=== PATIENT | male | born 1960 | race Hispanic/Latino ===

== ENCOUNTER 2020-06-14 10:59 | Inpatient (IN) | payer OTHER ==
[~2020-06-14] VITALS: Ht 170.2 cm; Wt 56.7 kg
[2020-06-14] MEDS ORDERED: ONDANSETRON HCL INJ 2MG/ML 2ML 2 MG/ML VIAL IV STA (11:06)
[2020-06-14] MEDS ORDERED: MORPHINE SULFATE INJ 4 MG/ML INJ 1ML IV STA (11:06)
[2020-06-14] MEDS ORDERED: SODIUM CHLORIDE 0.9% 1000ML 1,000 ML IV STA (11:06)
[2020-06-14] MEDS ORDERED: PANTOPRAZOLE 40 MG 10ML VIAL IV STA (11:06)
[2020-06-14 11:39] LABS: BASOPHILS % 0.3 % (0.0-1.0); EOSINOPHILS # (AUTO) 0.2 (0.0-0.4); EOSINOPHILS % 2.4 % (0.0-6.0); HEMATOCRIT 36.4 % (38.2-49.6); HEMOGLOBIN 12.4 g/dL (14.0-18.0); LYMPHOCYTES # (AUTO) 2.1 (1.0-3.2); MEAN CORPUSCULAR HEMOGLOBIN 32.5 pg (28-32); MEAN CORPUSCULAR HGB CONC 34.1 g/dL (31-35); MEAN CORPUSCULAR VOLUME 95.5 fL (81-99); MONOCYTES # (AUTO) 0.6 (0.2-0.8); MONOCYTES % 8.9 % (4.4-11.3); NEUTROPHILS # (AUTO) 3.7 (2.1-6.9); NEUTROPHILS % 55.9 % (38.7-80.0); PLATELET COUNT 256 x10e3/uL (140-360); RED BLOOD COUNT 3.81 x10e6/uL (4.3-5.7); RED CELL DISTRIBUTION WIDTH 13.5 % (11.7-14.4)
[2020-06-14 11:51] LABS: INR 0.97; PROTHROMBIN TIME 13.4 seconds (11.9-14.5)
[2020-06-14 11:52] LABS: PARTIAL THROMBOPLASTIN TIME 28.1 seconds (23.8-35.5)
[2020-06-14 12:01] LABS: ALANINE AMINOTRANSFERASE 102 IU/L (0-55); ALBUMIN 3.5 g/dL (3.5-5.0); ALBUMIN/GLOBULIN RATIO 1.1 (0.8-2.0); ALKALINE PHOSPHATASE 31 IU/L (40-150); AMYLASE 95 U/L (25-125); ANION GAP 11.8 mmol/L (8-16); BLOOD UREA NITROGEN 12 mg/dL (7-26); BUN/CREATININE RATIO 17 (6-25); CALCIUM 8.8 mg/dL (8.4-10.2); CARBON DIOXIDE 29 mmol/L (22-29); CHLORIDE 101 mmol/L (98-107); CREATINE KINASE 65 IU/L (30-200); CREATININE, SERUM 0.72 mg/dL (0.72-1.25); EST GLOMERULAR FILTRATION RATE > 60 ML/MIN (60-); GLUCOSE 128 mg/dL (74-118); LIPASE 73 U/L (8-78); MAGNESIUM 2.1 MG/DL (1.3-2.1); POTASSIUM 3.8 mmol/L (3.5-5.1); SODIUM 138 mmol/L (136-145)
--- NOTE | 2020-06-14 12:03 | Diagnostic Imaging Report ---
TECHNIQUE: Frontal view of the chest. INDICATION: ^ABD PAIN, N/V ^20200614 ^1141 COMPARISON: None DISCUSSION: Limited evaluation due to portable technique. Lines and hardware: None Heart and mediastinum: Within normal limits. Lungs and pleura: No focal airspace consolidation. No pleural effusion. No pneumothorax. Soft tissues and bones: No acute abnormality. IMPRESSION: Negative for acute intrathoracic process. Signed by: Jayson Hernandez MD on 06/14/2020 12:00 PM
--- OUTSIDE RECORDS SUMMARY | 2020-06-14 12:18 | XMS REPORT | Continuity of Care Document ---
Author Author [facility] t Organization [facility] Address [address] [place] [address] Phone Unavailable Care Team Providers Care Tourist Information Officer Name Role Phone Danyell SANTOS Attphys Unavailable [facility] Attphys Problems This patient has no known problems. Allergies, Adverse Reactions, Alerts This patient has no known allergies or adverse reactions. Medications This patient has no known medications. Procedures This patient has no known procedures. Encounters Start Date/Time End Date/Time Encounter Type Admission Type Attendi [facility] Care Department Encounter ID Source 2020-06-02 13:01:00 2020-06-02 15:59:00 Emergency [facility] ([facility]) [id number] Results Test Description Test Time Test Comments Results Result Comments Source CHEST SINGLE (PORTABLE) 2020-06-14 11:59:00 [facility] [address] [place] [address] Patient Name: GHULAM CISNEROS MR #: [id number] : 1960 Age/Sex: 59/M Req #: [id number] Adm Physician: Ordered by: ANN-MARIE SANTOS MD Report #: [id number] Location: ER Room/Bed: Procedure: [id number] DX/CHEST SINGLE (PORTABLE) Exam Date: 06/14/20 Exam Time: 1141 REPORT STATUS: Signed TECHNIQUE: Frontal view of the chest. INDICATION: ABD PAIN, N/V 20200614 114 COMPARISON: None DISCUSSION: Limited evaluation due to portable technique. Lines and hardware: None Heart and mediastinum: Within normal limits. Lungs and pleura: No focal airspace consolidation. No pleural effusion. No pneumothorax. Soft tissues and bones: No acute abnormality. IMPRESSION: Negative for acute intrathoracic process. Signed by: Emy Hernandez MD on 06/14/2020 12:00 PM Dictated By: EMY HERNANDEZ MD 1200 Transcribed By: NATY on 06/14/20 1200 COPY TO: ANN-MARIE SANTOS MD
--- OUTSIDE RECORDS SUMMARY | 2020-06-14 12:47 | XMS REPORT | Continuity of Care Document ---
Author Author [facility] t Organization [facility] Address [address] [place] [address] Phone Unavailable Care Team Providers Care Cloud Automation Tester Name Role Phone Danyell SANTOS Attphys Unavailable [facility] Attphys Problems This patient has no known problems. Allergies, Adverse Reactions, Alerts This patient has no known allergies or adverse reactions. Medications This patient has no known medications. Procedures This patient has no known procedures. Encounters Start Date/Time End Date/Time Encounter Type Admission Type Attendi [facility] Care Department Encounter ID Source 2020-06-02 13:01:00 2020-06-02 15:59:00 Emergency [facility] ([facility]) [id number] Results Test Description Test Time Test Comments Results Result Comments Source CHEST SINGLE (PORTABLE) 2020-06-14 11:59:00 [facility] [address] [place] [address] Patient Name: GHULAM CISNEROS MR #: [id number] : 1960 Age/Sex: 59/M Req #: [id number] Adm Physician: Ordered by: ANN-MARIE SANTOS MD Report #: [id number] Location: ER Room/Bed: Procedure: [id number] DX/CHEST SINGLE (PORTABLE) Exam Date: 06/14/20 Exam [...]
[2020-06-14] MEDS ORDERED: SODIUM CHLORIDE 0.9% 50ML 50 ML ONE (12:49)
[2020-06-14] MEDS ORDERED: IOPAMIDOL 370 MG/ML 200 ML INFUS..BTL INJ ONE (12:49)
[2020-06-14] MEDS ORDERED: DIATRIZOATE MEGL/DIATRIZOA SOD 30 ML BTL PO ONE (12:52)
--- NOTE | 2020-06-14 13:31 | Emergency Department Note ---
History of Present Illnes History of Present Illness Chief Complaint: Abdominal Complaints History of Present Illness This is a 59 year old male Patient in from home with complaints of abdominal pain and nausea/vomiting that has gotten progressively worse since December of this year. Patient has a history of hiatal hernia and gallstones. He has been followed by Dr. Gary Hagrrove and was sent to the ER for evaluation. Patient is alert and oriented x 4 with stable vital signs. Historian: Patient Arrival Mode: Car Certified Medical Dosimetrist Required: No Onset (how long ago): month(s) (6) Location: UPPER ABD Quality: PAIN Radiation: Reports non-radiation Severity: moderate, severe Onset quality: gradual Timing of current episode: intermittent Progression: waxing and waning Chronicity: chronic Context: Denies recent illness Relieving factors: none Exacerbating factors: none Associated symptoms: Reports denies other symptoms Past Medical/Family History Physician Review I have reviewed the patient's past medical and family history. Any updates have been documented here. Past Medical History Recent Fever: No Clinical Suspicion of Infectio: No New/Unexplained Change in Ment: No Past Medical History: Diabetes Other Medical History: neuropathy Past Surgical History: None Social History Smoking Cessation: Former smoker Counseling Performed: Yes Alcohol Use: Occasional Any Illegal Drug Use: No TB Exposure/Symptoms: No Physically hurt or threatened: No Family History Family history of heart diseas: No Other Any Pre-Existing Lines (PICC,: No Review of Systems Review of Systems Gastrointestinal: Reports as per HPI, Reports abdominal pain, Reports diarrhea (OCCASIONALLY), Reports nausea, Reports vomiting (FREQUENT) Physical Exam Related Data Allergies: Coded Allergies: No Known Allergies (Unverified , 03/30/11) Triage Vital Signs Vital Signs Date Time Temp Pulse Resp B/P (MAP) Pulse Ox O2 Delivery O2 Flow Rate FiO2 06/14/20 11:08 98.2 63 16 111/64 100 Room Air Vital signs reviewed: Yes Physical Exam CONSTITUTIONAL Constitutional: Present well-developed, Present well-nourished HENT HENT: Present normocephalic, Present atraumatic, Present oropharynx clear/moist, Present nose normal HENT L/R: Present left ext ear normal, Present right ext ear normal EYES Eyes: Reports PERRL, Reports conjunctivae normal NECK Neck: Present ROM normal PULMONARY Pulmonary: Present effort normal, Present breath sounds normal CARDIOVASCULAR Cardiovascular: Present regular rhythm, Present heart sounds normal, Present capillary refill normal, Present normal rate GASTROINTESTINAL Abdominal: Present soft, Present bowel sounds normal, Present tender (MOD TTP OBI/RUQ, NEG MEDELLIN'S); Absent guarding, Absent rebound GENITOURINARY Genitourinary: Present exam deferred SKIN Skin: Present warm, Present dry MUSCULOSKELETAL Musculoskeletal: Present ROM normal NEUROLOGICAL Neurological: Present alert, Present oriented x 3, Present no gross motor or sensory deficits PSYCHOLOGICAL Psychological: Present mood/affect normal, Present judgement normal Results Laboratory Result Diagram: 06/14/20 1118 06/14/20 1118 Laboratory Laboratory Tests Test 06/14/20 11:18 White Blood Count 6.60 x10e3/uL (4.8-10.8) Red Blood Count 3.81 x10e6/uL (4.3-5.7) Hemoglobin 12.4 g/dL (14.0-18.0) Hematocrit 36.4 % (38.2-49.6) Mean Corpuscular Volume 95.5 fL (81-99) Mean Corpuscular Hemoglobin 32.5 pg (28-32) Mean Corpuscular Hemoglobin Concent 34.1 g/dL (31-35) Red Cell Distribution Width 13.5 % (11.7-14.4) Platelet Count 256 x10e3/uL (140-360) Neutrophils (%) (Auto) 55.9 % (38.7-80.0) Lymphocytes (%) (Auto) 32.0 % (18.0-39.1) Monocytes (%) (Auto) 8.9 % (4.4-11.3) Eosinophils (%) (Auto) 2.4 % (0.0-6.0) Basophils (%) (Auto) 0.3 % (0.0-1.0) Neutrophils # (Auto) 3.7 (2.1-6.9) Lymphocytes # (Auto) 2.1 (1.0-3.2) Monocytes # (Auto) 0.6 (0.2-0.8) Eosinophils # (Auto) 0.2 (0.0-0.4) Basophils # (Auto) 0.0 (0.0-0.1) Absolute Immature Granulocyte (auto 0.03 x10e3/uL (0-0.1) Prothrombin Time 13.4 seconds (11.9-14.5) Prothromb Time International Ratio 0.97 Activated Partial Thromboplast Time 28.1 seconds (23.8-35.5) Sodium Level 138 mmol/L (136-145) Potassium Level 3.8 mmol/L (3.5-5.1) Chloride Level 101 mmol/L (98-107) Carbon Dioxide Level 29 mmol/L (22-29) Anion Gap 11.8 mmol/L (8-16) Blood Urea Nitrogen 12 mg/dL (7-26) Creatinine 0.72 mg/dL (0.72-1.25) Estimat Glomerular Filtration Rate > 60 ML/MIN (60-) BUN/Creatinine Ratio 17 (6-25) Glucose Level 128 mg/dL (74-118) Calcium Level 8.8 mg/dL (8.4-10.2) Magnesium Level 2.1 MG/DL (1.3-2.1) Total Bilirubin 0.2 mg/dL (0.2-1.2) Aspartate Amino Transf (AST/SGOT) 46 IU/L (5-34) Alanine Aminotransferase (ALT/SGPT) 102 IU/L (0-55) Alkaline Phosphatase 31 IU/L (40-150) Creatine Kinase 65 IU/L (30-200) Creatine Kinase MB 1.00 ng/mL (0-5.0) Troponin I < 0.001 ng/mL (0-0.300) B-Type Natriuretic Peptide 30.3 pg/mL (0-100) Total Protein 6.6 g/dL (6.5-8.1) Albumin 3.5 g/dL (3.5-5.0) Globulin 3.1 g/dL (2.3-3.5) Albumin/Globulin Ratio 1.1 (0.8-2.0) Amylase Level 95 U/L (25-125) Lipase 73 U/L (8-78) Lab results reviewed: Yes Procedures 12 Lead ECG Interpretation ECG Interpretation : ECG: ECG 1 Certified Medical Dosimetrist: Interpreted by ED physician Date: Jun 14, 2020 Time: 13:15 Rhythm: sinus bradycardia Rate: bradycardia BPM: 59 QRS axis: right ST segments normal: Yes T waves normal: Yes Clinical Impression: non-specific ECG Assessment & Plan Medical Decision Making MDM ABD PAIN, N/V - CBC, CHEM, KINSEY/LIPASE, UA, CT ABD/PELVIS - SENT FOR ADMISSION, R /O SBO, HIATAL HERNIA, PANCREATITIS, CHOLECYSTITIS Reassessment Reassessment ADMIT TO DR ENGLISH PCP, CONSULT TO Dank ROSA (I SPOKE WITH HIM) Assessment & Plan Final Impression: (1) Abdominal pain (2) Vomiting (3) Dehydration Depart Disposition: ADMITTED Last Vital Signs Date Time Temp Pulse Resp B/P (MAP) Pulse Ox O2 Delivery O2 Flow Rate FiO2 06/14/20 12:57 56 18 99 06/14/20 11:08 98.2 111/64 Room Air Medications in the ED Pantoprazole Sodium 40 mg ONCE STAT IV ; Start 06/14/20 at 11:06; Stop 06/14/20 at 11:21; Status DC Morphine Sulfate 4 mg ONCE STAT IV ; Start 06/14/20 at 11:06; Stop 06/14/20 at 11:20; Status DC Ondansetron HCl 4 mg ONCE STAT IV ; Start 06/14/20 at 11:06; Stop 06/14/20 at 11:21; Status DC Sodium Chloride 1,000 ml @ 0 mls/hr Q0M STAT IV ; Start 06/14/20 at 11:06; Stop 06/14/20 at 11:08; Status DC Sodium Chloride 1,000 ml @ 125 mls/hr Q8H IV ; Start 06/14/20 at 12:00; Stop 07/14/20 at 11:59 Morphine Sulfate 4 mg Q4H PRN IV SEVERE PAIN (7-10); Start 06/14/20 at 12:00; Stop 06/21/20 at 11:59 Ondansetron HCl 4 mg Q4H PRN IV NAUSEA; Start 06/14/20 at 12:00; Stop 07/14/20 at 11:59 ANN-MARIE SANTOS MD Jun 14, 2020 13:31
--- NOTE | 2020-06-14 13:51 | Diagnostic Imaging Report ---
CT of the abdomen and pelvis with contrast TECHNIQUE: CT of the abdomen and pelvis WITH intravenous contrast and WITHOUT oral contrast. Dose modulation, iterative reconstruction, and/or weight-based adjustment of the mA/kV was utilized to reduce the radiation dose to as low as reasonably achievable. IV CONTRAST: 100 mL of Isovue 370 ORAL CONTRAST: Water RADIATION DOSE: Total DLP: 516 mGy*cm COMPLICATIONS: None INDICATION: ^ABD PAIN, N/V ^[id number] ^1250. COMPARISON: None. FINDINGS: LOWER THORAX: Unremarkable. HEPATOBILIARY: No focal hepatic lesions. Multiple large calcified gallstones are identified. No wall thickening or surrounding inflammatory changes noted. No biliary ductal dilatation. SPLEEN: No splenomegaly. PANCREAS: No focal masses or ductal dilatation. ADRENALS: No adrenal nodules. KIDNEYS/URETERS: No hydronephrosis, stones, or masses. PELVIC ORGANS/BLADDER: Unremarkable. PERITONEUM/RETROPERITONEUM: Negative for pneumoperitoneum. Trace free fluid is noted dependently within the pelvis. LYMPH NODES: No lymphadenopathy. VESSELS: Negative for abdominal aortic aneurysm. Moderate infrarenal calcified and noncalcified atherosclerotic plaque disease is noted. GI TRACT: Multiple fluid-filled hyperenhancing small bowel loops are noted. Negative for bowel obstruction. Large amount of stool is noted throughout the colon. Small hiatal hernia is noted. No surrounding inflammatory changes are identified. BONES AND SOFT TISSUES: No acute osseous abnormality. Bilateral pars defects are noted at L5 with grade 1 anterolisthesis of L5 on S1. Significant disc space narrowing and osteophyte formation is noted at this level.. IMPRESSION: 1. Multiple hyperenhancing fluid-filled small bowel loops can be seen in patients with enteritis. Trace amount of free fluid layering dependently within the pelvis is nonspecific and possibly reactive. 2. Large amount of stool is noted throughout the colon, correlate for constipation. Negative for small bowel loop dilatation. Small hiatal hernia is noted. 3. Cholelithiasis without CT evidence of cholecystitis. 4. Grade 1 anterolisthesis of L5 on S1 with severe focal degenerative change at this level with bilateral pars defects. Signed by: Jayson Hernandez MD on 06/14/2020 1:48 PM
[2020-06-14] MEDS ORDERED: GLIPIZIDE5 MG PO (14:02)
[2020-06-14] MEDS ORDERED: DICYCLOMINE HCL20 MG PO (14:02)
[2020-06-14] MEDS ORDERED: LISINOPRIL10 MG PO (14:02)
[2020-06-14] MEDS ORDERED: LYRICA50 MG PO (14:02)
[2020-06-14] MEDS ORDERED: PROMETHAZINE12.5 M1 PO (14:02)
[2020-06-14] MEDS ORDERED: ULTRAM 50MG50 MG PO (14:02)
[2020-06-14] MEDS ORDERED: GABAPENTIN100 MG PO (14:02)
[2020-06-14] MEDS ORDERED: LEVSIN0.125 MG PO (14:02)
[2020-06-14 14:33] VITALS: BP 135/70
[2020-06-14 14:35] VITALS: BP 142/80
[2020-06-14] MEDS: SODIUM CHLORIDE 0.9% 1000ML 1,000 ML IV SCH ×2 (16:13→20:00)
[2020-06-14] MEDS: ONDANSETRON HCL INJ 2MG/ML 2ML 2 MG/ML VIAL IV PRN (16:18)
--- NOTE | 2020-06-14 17:52 | NUR ---
H&P cc: N/V HPI: 59yoM, PCP Marilou English, developed intractable N/V in office; sent to hospital for mgmt; PMH: 1. HTN 2. DM2 3. PUD 2012 4.GIB 2012 s/p EGD 5.HCV (no treatment) 6.Nicotine dependence in remission 7.Constipation 8.OA 9.Peripheral neuropathy 10.INtermittent nausea 11.Chronic pain syndrome PSHx: nonw Allergies; see emr Fh/SH; ; no illicits meds; see MAR ROS: nof/c/s/LUX/cp/dizziness/confusion/leg pain/vision changes/focal limb weakness v/s revd PE tired appearing anicteric ns1s2 mod bs soft; RUQ TENDERNESS; EQUIVOCAL BOYD'S SIGN no leg edema skin dry n. affect a&ox3; [facility] labs/meds revd A/P: 59yoM Acute enteritis- IV flagyl; IVF Intractable N/V- antiemetics Equivocal Boyd's sign- check HIDA scan. Cholelithiasis- contributory to symptoms; Sx consulted; possible cholecystectomy soon Transaminitis- monitor DM2- hab1c/lipids DM-neujroapathy- cont neurontin HTN- cont home med Pro: scd Dispo; f/u MARILOU ENGLISH MD, PHD.
[2020-06-14] MEDS ORDERED: DICYCLOMINE HCL 20 MG TAB PO SCH (18:00)
[2020-06-14] MEDS ORDERED: HYOSCYAMINE 0.125 MG TAB PO PRN (18:00)
[2020-06-14] MEDS ORDERED: TRAMADOL HCL 50 MG TAB PO PRN (18:00)
[2020-06-14] MEDS ORDERED: PROMETHAZINE HCL 25 MG TAB PO PRN (18:00)
[2020-06-14 18:16] LABS: CHOL/HDL RATIO 2.6 (3.9-4.7)
[2020-06-14] MEDS: METRONIDAZOLE 500MG/NS 100ML 100 ML IV SCH (18:25)
--- NOTE | 2020-06-14 19:00 | NUR ---
Received patient from day nurse, patient is oriented, introduced self to patient. safety and fall precaution maintained as per hospital protocol: bed in lowest position and locked, needed items beside bed and call melo placed close to patient and patient instructed to use it to call nurse for any assistance needed, patient verbalized understanding. patient is currently stable, will continue to monitor. patient is npo and on fluids
[2020-06-14] MEDS: CEFTRIAXONE SOD 1 GM/NS 50 ML 50 ML IV SCH (19:58)
[2020-06-14 20:00] VITALS: BP 142/80
[2020-06-14 20:42] LABS: CREATINE KINASE MB 0.9 ng/mL (0-5.0)
[2020-06-14 20:43] VITALS: BP 128/65
[2020-06-14] MEDS: GABAPENTIN 400 MG CAP PO SCH (20:58)
[2020-06-14] MEDS: SENNOSIDES 8.6 MG TAB PO SCH (20:58)
[2020-06-14] MEDS ORDERED: ZOLPIDEM TARTRATE 5 MG TAB PO PRN (21:00)
[2020-06-14] MEDS ORDERED: GABAPENTIN 100 MG CAP PO SCH (21:00)
[2020-06-15 00:53] VITALS: BP 129/67
[2020-06-15] MEDS: METRONIDAZOLE 500MG/NS 100ML 100 ML IV SCH ×3 (01:52→16:56)
[2020-06-15] MEDS: SODIUM CHLORIDE 0.9% 1000ML 1,000 ML IV SCH ×3 (04:14→21:10)
[2020-06-15 05:29] VITALS: BP 135/74
[2020-06-15 05:37] LABS: BASOPHILS % 0.4 % (0.0-1.0); EOSINOPHILS # (AUTO) 0.1 (0.0-0.4); EOSINOPHILS % 1.9 % (0.0-6.0); HEMATOCRIT 35.9 % (38.2-49.6); HEMOGLOBIN 12.4 g/dL (14.0-18.0); LYMPHOCYTES # (AUTO) 2.2 (1.0-3.2); LYMPHOCYTES % 31.4 % (18.0-39.1); MEAN CORPUSCULAR HEMOGLOBIN 32.2 pg (28-32); MEAN CORPUSCULAR HGB CONC 34.5 g/dL (31-35); MEAN CORPUSCULAR VOLUME 93.2 fL (81-99); MONOCYTES # (AUTO) 0.5 (0.2-0.8); MONOCYTES % 7.6 % (4.4-11.3); NEUTROPHILS # (AUTO) 4.1 (2.1-6.9); NEUTROPHILS % 58.3 % (38.7-80.0); PLATELET COUNT 253 x10e3/uL (140-360); RED BLOOD COUNT 3.85 x10e6/uL (4.3-5.7); RED CELL DISTRIBUTION WIDTH 13.3 % (11.7-14.4)
[2020-06-15 06:21] LABS: ALANINE AMINOTRANSFERASE 106 IU/L (0-55); ALBUMIN 3.2 g/dL (3.5-5.0); ALBUMIN/GLOBULIN RATIO 1.1 (0.8-2.0); ALKALINE PHOSPHATASE 31 IU/L (40-150); ANION GAP 12.9 mmol/L (8-16); BLOOD UREA NITROGEN 6 mg/dL (7-26); BUN/CREATININE RATIO 9 (6-25); CALCIUM 8.8 mg/dL (8.4-10.2); CARBON DIOXIDE 25 mmol/L (22-29); CHLORIDE 103 mmol/L (98-107); CREATININE, SERUM 0.67 mg/dL (0.72-1.25); EST GLOMERULAR FILTRATION RATE > 60 ML/MIN (60-); GLUCOSE 104 mg/dL (74-118); POTASSIUM 3.9 mmol/L (3.5-5.1); SODIUM 137 mmol/L (136-145)
--- NOTE | 2020-06-15 06:45 | NUR ---
patient endorsed to next shift for continuity of care.
--- NOTE | 2020-06-15 07:25 | NUR ---
IM- progress note O/N see below ROS: nof/c/s/LUX/cp/dizziness/confusion/leg pain/vision changes/focal limb weakness v/s revd PE tired appearing anicteric ns1s2 mod bs soft; RUQ TENDERNESS; EQUIVOCAL BOYD'S SIGN no leg edema skin dry n. affect a&ox3; [place] labs/meds revd A/P: 59yoM Acute enteritis- IV flagyl; IVF Intractable N/V- antiemetics Equivocal Boyd's sign- check HIDA scan. Cholelithiasis- contributory to symptoms; Sx consulted; possible cholecystectomy soon Transaminitis- monitor DM2- hab1c/lipids DM-neujroapathy- cont neurontin HTN- cont home med Pro: scd Dispo; f/u - HIDA pending; IV abx; improving symptoms; plan for lap shawn in 1-2 days; MARILOU ENGLISH MD, PHD.
[2020-06-15 07:47] VITALS: BP 137/82
[2020-06-15] MEDS: GABAPENTIN 400 MG CAP PO SCH ×3 (09:00→21:00)
[2020-06-15] MEDS: DOCUSATE SODIUM 100 MG CAP PO SCH ×2 (09:21→16:56)
[2020-06-15] MEDS: LISINOPRIL 10 MG TAB PO SCH (09:22)
[2020-06-15] MEDS: SENNOSIDES 8.6 MG TAB PO SCH ×2 (09:22→21:00)
[2020-06-15] MEDS ORDERED: PSYLLIUM 6GM PACKET PO SCH (11:00)
[2020-06-15 11:42] VITALS: BP 132/71
[2020-06-15 13:08] LABS: CLARITY,URINE CLEAR (CLEAR); COLOR,URINE YELLOW (YELLOW)
[2020-06-15 13:09] LABS: BILIRUBIN,URINE NEGATIVE (NEGATIVE); KETONES,URINE 2+ (NEGATIVE); LEUKOCYTE ESTERASE ,URINE NEGATIVE (NEGATIVE); NITRITE,URINE NEGATIVE (NEGATIVE); PROTEIN,URINE DIPSTICK NEGATIVE (NEGATIVE); URINE UROBILINOGEN 1 mg/dL (0.2 - 1)
[2020-06-15] MEDS: MORPHINE SULFATE INJ 4 MG/ML INJ 1ML IV PRN (13:22)
[2020-06-15] MEDS: ONDANSETRON HCL INJ 2MG/ML 2ML 2 MG/ML VIAL IV PRN ×3 (13:22→17:25)
[2020-06-15 14:13] LABS: WBC,URINE (MAN) 0-5 /HPF (0-5)
[2020-06-15 14:14] LABS: BACTERIA,URINE FEW /HPF; EPITHELIAL CELLS,URINE RARE /LPF
--- NOTE | 2020-06-15 19:15 | NUR ---
BEDSIDE SHIFT REPORT RECEIVED. PATIENT IS RESTING IN BED, AAOX3. RESP EVEN AND UNLABORED. PATIENT C/O NAUSEA. WILL NOTIFY MD. EDUCATED PT ABOUT FALL PRECAUTIONS. PT VERBALIZED UNDERSTANDING. CALL LIGHT WITH IN EASY REACH. INSTRUCTED PT TO USE CALL LIGHT FOR ALL THE NEEDS. BED IS LOW AND LOCKED. SIDE RAILS X2. PT DENIES NEEDS AT THIS TIME.
[2020-06-15] MEDS: PROMETHAZINE 12.5MG/ NACL 0.9% 12.5 MG/50 ML BAG IV PRN (20:07)
[2020-06-15 20:26] VITALS: BP 182/86
--- NOTE | 2020-06-15 20:35 | NUR ---
SPOKE TO DR ENGLISH THAT PATIENT C/O NAUSEA. NEW ORDER RECEIVED
[2020-06-15 21:00] VITALS: BP 182/86
[2020-06-15] MEDS: CEFTRIAXONE SOD 1 GM/NS 50 ML 50 ML IV SCH (21:10)
--- NOTE | 2020-06-15 21:51 | Diagnostic Imaging Report ---
Hepatobiliary Scan with Gallbladder Ejection Fraction Reason for exam: Abdominal pain Technique: Following intravenous administration of 6.2 millicuries of Tc-99m mebrofenin, dynamic images of the abdomen in the anterior projection were obtained through 60 minutes, however, due to a technical error, the images were not able to be saved. Sincalide (CCK analog) 1.1 micrograms was administered intravenously over 30 minutes with additional imaging for determination of gallbladder ejection fraction. Discussion: The images through 60 minutes could not be reviewed due to a technical problem. A static image obtained at 60 minutes showed that the gallbladder had filled and there was tracer in the small bowel. The gallbladder ejection fraction with sincalide is 6% (normal greater than 40%). Impression: 1. Filling of the gallbladder excludes acute cystic duct obstruction/acute cholecystitis. 2. The decreased gallbladder ejection fraction of 6% supports the clinical diagnosis of chronic cholecystitis/gallbladder dyskinesia. Caveat: The patient had received morphine sulfate 4 mg approximately 30 minutes prior to the study. The morphine effect on the biliary tract possibly impaired gallbladder emptying. Signed by: Dr. Noemy Watters M.D. on 06/15/2020 9:47 PM
[2020-06-16] VITALS (10 sets, daily range): BP systolic 129–141; BP diastolic 66–87
[2020-06-16] MEDS: METRONIDAZOLE 500MG/NS 100ML 100 ML IV SCH ×3 (02:00→17:25)
[2020-06-16] MEDS: SODIUM CHLORIDE 0.9% 1000ML 1,000 ML IV SCH ×2 (05:12→15:19)
--- NOTE | 2020-06-16 06:38 | NUR ---
IM- progress note O/N see below ROS: nof/c/s/LUX/cp/dizziness/confusion/leg pain/vision changes/focal limb weakness v/s revd PE tired appearing anicteric ns1s2 mod bs soft; RUQ TENDERNESS; EQUIVOCAL BOYD'S SIGN no leg edema skin dry n. affect a&ox3; [facility] labs/meds revd A/P: 59yoM Acute enteritis- IV flagyl; IVF Intractable N/V- antiemetics Equivocal Boyd's sign- check HIDA scan. Cholelithiasis- contributory to symptoms; Sx consulted; possible cholecystectomy soon Transaminitis- monitor DM2- hab1c/lipids DM-neujroapathy- cont neurontin HTN- cont home med Pro: scd Dispo; f/u 10-14 HIDA pending; IV abx; improving symptoms; plan for lap shawn in 1-2 days; 10-15 Chronic cholecystitis with EF of GB at 6%. Pending cholecystecotmy. Continue antiemetics, fluids and abx. Reduce fluids; check labs MARILOU ENGLISH MD, PHD.
[2020-06-16] MEDS: MORPHINE SULFATE INJ 4 MG/ML INJ 1ML IV PRN ×3 (07:38→22:30)
[2020-06-16] MEDS: ONDANSETRON HCL INJ 2MG/ML 2ML 2 MG/ML VIAL IV PRN ×2 (07:38→22:30)
[2020-06-16 07:57] LABS: BASOPHILS % 0.4 % (0.0-1.0); EOSINOPHILS % 0.4 % (0.0-6.0); HEMATOCRIT 38.5 % (38.2-49.6); HEMOGLOBIN 13.5 g/dL (14.0-18.0); LYMPHOCYTES # (AUTO) 1.8 (1.0-3.2); MEAN CORPUSCULAR HEMOGLOBIN 32.1 pg (28-32); MEAN CORPUSCULAR HGB CONC 35.1 g/dL (31-35); MEAN CORPUSCULAR VOLUME 91.7 fL (81-99); MONOCYTES # (AUTO) 0.6 (0.2-0.8); NEUTROPHILS # (AUTO) 4.6 (2.1-6.9); NEUTROPHILS % 65.8 % (38.7-80.0); PLATELET COUNT 278 x10e3/uL (140-360); RED CELL DISTRIBUTION WIDTH 13.2 % (11.7-14.4)
[2020-06-16 08:20] LABS: ANION GAP 15.7 mmol/L (8-16); BLOOD UREA NITROGEN 8 mg/dL (7-26); BUN/CREATININE RATIO 11 (6-25); CALCIUM 8.5 mg/dL (8.4-10.2); CARBON DIOXIDE 23 mmol/L (22-29); CHLORIDE 101 mmol/L (98-107); EST GLOMERULAR FILTRATION RATE > 60 ML/MIN (60-); GLUCOSE 119 mg/dL (74-118); POTASSIUM 3.7 mmol/L (3.5-5.1); SODIUM 136 mmol/L (136-145)
[2020-06-16] MEDS: GABAPENTIN 400 MG CAP PO SCH (08:52)
[2020-06-16] MEDS: DOCUSATE SODIUM 100 MG CAP PO SCH ×2 (08:52→17:25)
[2020-06-16] MEDS: LISINOPRIL 10 MG TAB PO SCH (08:52)
[2020-06-16] MEDS: SENNOSIDES 8.6 MG TAB PO SCH (08:52)
[2020-06-16] MEDS: METOCLOPRAMIDE HCL 10 MG/2ML VIAL IV SCH ×3 (11:48→23:19)
[2020-06-16] MEDS: PROMETHAZINE 12.5MG/ NACL 0.9% 12.5 MG/50 ML BAG IV PRN (16:09)
--- NOTE | 2020-06-16 16:19 | NUR ---
Nutrition Screen Note RD Recommendation for Physician: -Recommend advancing diet when medically appropriate -If PO intake is <50% of meals, offer Glucerna nutrition supplement when diet advances Plan of Care: RD following, monitoring for tolerance and adequacy Nutrition reason for involvement: Nutrition Risk Trigger Primary Diagnose(s): abdominal pain, dehydration, vomiting PMH: HTN, DM2, PUD 2012, GIB 2012 s/p EGD, HCV (no treatment), Nicotine dependence in remission, Constipation, OA, Peripheral neuropathy, Intermittent nausea, Chronic pain syndrome Ht: 67 in Wt:125 lb BMI: 19.6 kg/m2 IBW:[address] Assessment: (06/16/20) Chart reviewed. Labs and meds reviewed. Pt is an 59 year old male admitted with abdominal pain, dehydration, and vomiting. Attempted to speak to pt, but he was sleeping at time of visit. Pt was previously on a clear liquid diet, but was changed to NPO today. % meal intake was not recorded. There are no previous weights in chart. Recommend advancing diet when medically appropriate. Will continue to monitor. Current Diet: NPO Malnutrition Evaluation (06/16/20) Unable to assess. Will re-evaluate at follow-up as appropriate. Diet Education Needs Assessment: Diet education not indicated. Nutrition Care Level: low Signed: Estela Odell, RD, LD
--- NOTE | 2020-06-16 19:15 | NUR ---
BEDSIDE SHIFT REPORT RECEIVED. PATIENT IS RESTING IN BED, AAOX3. RESP EVEN AND UNLABORED. PATIENT C/O NAUSEA. WILL NOTIFY MD. EDUCATED PT ABOUT FALL PRECAUTIONS. PT VERBALIZED UNDERSTANDING. CALL LIGHT WITH IN EASY REACH. INSTRUCTED PT TO USE CALL LIGHT FOR ALL THE NEEDS. BED IS LOW AND LOCKED. SIDE RAILS X2. PT DENIES NEEDS AT THIS TIME. Addendum: 06/17/20 at 0001 by Penny Badillo RN WRONG DATE
--- NOTE | 2020-06-16 19:20 | NUR ---
BEDSIDE SHIFT REPORT RECEIVED. PATIENT IS RESTING IN BED, AAOX3. RESP EVEN AND UNLABORED. NO ACUTE DISTRESS NOTED. EDUCATED PT ABOUT FALL PRECAUTIONS. PT VERBALIZED UNDERSTANDING. CALL LIGHT WITH IN EASY REACH. INSTRUCTED PT TO USE CALL LIGHT FOR ALL THE NEEDS. BED IS LOW AND LOCKED. SIDE RAILS X2. PT DENIES NEEDS AT THIS TIME.
[2020-06-16] MEDS: CEFTRIAXONE SOD 1 GM/NS 50 ML 50 ML IV SCH (20:45)
--- NOTE | 2020-06-16 20:50 | NUR ---
CONSENT FORM OBTAIN. NOTIFIED FOR PLAN OF SURGERY TOMORROW. NOTIFIED HEAD TENNIS PROFESSIONAL ABOUT SURGERY ORDER.
[2020-06-17] VITALS (8 sets, daily range): BP systolic 115–160; BP diastolic 67–92
[2020-06-17] MEDS: METRONIDAZOLE 500MG/NS 100ML 100 ML IV SCH ×2 (01:47→08:25)
[2020-06-17] MEDS: MORPHINE SULFATE INJ 4 MG/ML INJ 1ML IV PRN ×2 (02:58→08:26)
[2020-06-17] MEDS: ONDANSETRON HCL INJ 2MG/ML 2ML 2 MG/ML VIAL IV PRN ×3 (02:58→17:12)
[2020-06-17] MEDS: SODIUM CHLORIDE 0.9% 1000ML 1,000 ML IV SCH ×2 (04:36→17:11)
[2020-06-17] MEDS: METOCLOPRAMIDE HCL 10 MG/2ML VIAL IV SCH ×4 (05:02→23:12)
[2020-06-17] MEDS: DOCUSATE SODIUM 100 MG CAP PO SCH ×2 (08:25→12:53)
[2020-06-17] MEDS: LISINOPRIL 10 MG TAB PO SCH (08:25)
[2020-06-17] MEDS ORDERED: METOPROLOL TARTRATE INJ 1 MG/ML VIAL IV PRN (09:45)
[2020-06-17] MEDS ORDERED: DEXAMETHASONE SOD PHOS INJ 4 MG/ML VIAL ONE (12:06)
[2020-06-17] MEDS ORDERED: SUCCINYLCHOLINE CHLORIDE 20 MG/ML 10ML VIAL ONE (12:06)
[2020-06-17] MEDS ORDERED: KETOROLAC TROMETHAMINE 30 MG/ML VIAL ONE (12:06)
[2020-06-17] MEDS ORDERED: SEVOFLURANE INHAL SOLN 250 ML PEN BTL ONE (12:06)
[2020-06-17] MEDS ORDERED: ONDANSETRON HCL INJ 2MG/ML 2ML 2 MG/ML VIAL ONE (12:06)
[2020-06-17] MEDS ORDERED: LIDOCAINE HCL 2% LOCAL INJ 5 ML SDV VIAL INJ ONE (12:06)
[2020-06-17] MEDS ORDERED: ROCURONIUM BROMIDE 10 MG/ML 5ML VIAL IV ONE (12:06)
[2020-06-17] MEDS ORDERED: PROPOFOL IV EMULSION 10 MG/ML 20 ML VIAL ONE (12:06)
[2020-06-17] MEDS ORDERED: BUPIVACAINE 0.25% 30ML SDV INJ ONE (12:44)
[2020-06-17] MEDS ORDERED: FENTANYL CITRATE/PF 100MCG/2 ML INJ ONE (14:49)
[2020-06-17] MEDS ORDERED: MIDAZOLAM HCL 2 MG/2 ML VIAL ONE (14:49)
--- NOTE | 2020-06-17 16:10 | Operative Report ---
DATE OF PROCEDURE: 06/17/2020 SURGEON: Quique Hargrove MD PREOPERATIVE DIAGNOSES: 1. Cholecystitis. 2. Cholelithiasis. POSTOPERATIVE DIAGNOSES: 1. Cholecystitis. 2. Cholelithiasis. OPERATION PERFORMED: Laparoscopic cholecystectomy. ANESTHESIA: General. COMPLICATIONS: None. ESTIMATED BLOOD LOSS: Minimal. DESCRIPTION OF PROCEDURE: The patient lying in bed in the supine position under good general endotracheal anesthesia, the abdomen was prepped with Betadine solution and draped in the usual manner. A Veress needle was introduced into the umbilicus and pneumoperitoneum was established without any difficulty. An 11 mm trocar was placed into the umbilicus and a 10 mm video laparoscope was placed into the intraabdominal cavity. Under direct vision, three 5 mm trocars were placed in the right subcostal region. Video laparoscopy at this point revealed the liver that shows some fatty infiltration. The gallbladder was covered up with adhesions and contained some large stones. The rest of the abdominal exploration was within normal limits. The small bowel was run and there was no sign of any obstruction in the small bowel. There was also no sign of any inflammatory bowel disease of the small bowel. The adhesions to the gallbladder were then slowly and carefully taken down. The peritoneum overlying the neck of the gallbladder was then opened and the cystic duct was identified. The cystic duct was followed to its junction with the common duct. The cystic duct was then circumferentially dissected away from the common duct, doubly clipped and divided. The cystic artery was similarly doubly clipped and divided. The gallbladder was then slowly and carefully taken off the liver bed using the cautery scissors and perfect hemostasis was ascertained. The gallbladder was then grasped through the umbilical port and removed without any difficulty. Video laparoscopy was then again carried out. The liver bed was found to be perfectly dry, the excess fluid was aspirated. The pneumoperitoneum was evacuated and all the trocars were removed under direct vision. The midline fascia at the umbilicus was then closed with a [id number] of 0-Vicryl. All layers were infiltrated on the way out with solution of 0.25% Marcaine. Subcutaneous tissue was approximated with 3-0 Vicryl and the skin was closed with subcuticular 5-0 Vicryl. Benzoin, Steri-Strips, and Band-Aids were applied. The sponge, lap, and needle count was correct. The patient tolerated the procedure well and returned to the recovery room in stable condition. MD JAYMIE Cordova/ANNMARIE /[id number]
[2020-06-17] MEDS: PANTOPRAZOLE 40 MG 10ML VIAL IV SCH (17:11)
[2020-06-17] MEDS: HYDROMORPHONE 1MG/1ML INJ IV PRN ×2 (17:12→20:39)
[2020-06-17] MEDS: CEFTRIAXONE SOD 1 GM/NS 50 ML 50 ML IV SCH (20:38)
[2020-06-18] VITALS (8 sets, daily range): BP systolic 137–168; BP diastolic 73–90
[2020-06-18] MEDS: HYDROMORPHONE 1MG/1ML INJ IV PRN ×4 (05:12→23:04)
[2020-06-18] MEDS: PROMETHAZINE 12.5MG/ NACL 0.9% 12.5 MG/50 ML BAG IV PRN (05:33)
[2020-06-18 05:41] LABS: BASOPHILS % 0.1 % (0.0-1.0); EOSINOPHILS % 0.1 % (0.0-6.0); HEMATOCRIT 39.8 % (38.2-49.6); HEMOGLOBIN 14.5 g/dL (14.0-18.0); LYMPHOCYTES # (AUTO) 3.2 (1.0-3.2); MEAN CORPUSCULAR HEMOGLOBIN 33.2 pg (28-32); MEAN CORPUSCULAR HGB CONC 36.4 g/dL (31-35); MEAN CORPUSCULAR VOLUME 91.1 fL (81-99); MONOCYTES # (AUTO) 1.2 (0.2-0.8); MONOCYTES % 8.2 % (4.4-11.3); NEUTROPHILS # (AUTO) 9.6 (2.1-6.9); NEUTROPHILS % 68.2 % (38.7-80.0); PLATELET COUNT 303 x10e3/uL (140-360); RED BLOOD COUNT 4.37 x10e6/uL (4.3-5.7); RED CELL DISTRIBUTION WIDTH 13.2 % (11.7-14.4)
[2020-06-18 05:57] LABS: ANION GAP 16.8 mmol/L (8-16); BLOOD UREA NITROGEN 8 mg/dL (7-26); BUN/CREATININE RATIO 12 (6-25); CARBON DIOXIDE 23 mmol/L (22-29); CHLORIDE 99 mmol/L (98-107); CREATININE, SERUM 0.68 mg/dL (0.72-1.25); EST GLOMERULAR FILTRATION RATE > 60 ML/MIN (60-); GLUCOSE 150 mg/dL (74-118); POTASSIUM 3.8 mmol/L (3.5-5.1); SODIUM 135 mmol/L (136-145)
--- NOTE | 2020-06-18 06:18 | NUR ---
IM- progress note O/N see below ROS: nof/c/s/LUX/cp/dizziness/confusion/leg pain/vision changes/focal limb weakness v/s revd PE tired appearing anicteric ns1s2 mod bs soft; RUQ TENDERNESS; EQUIVOCAL BOYD'S SIGN no leg edema skin dry n. affect a&ox3; [facility] labs/meds revd A/P: 59yoM Acute enteritis- IV flagyl; IVF Intractable N/V- antiemetics Equivocal Boyd's sign- check HIDA scan. Cholelithiasis- contributory to symptoms; Sx consulted; possible cholecystectomy soon Transaminitis- monitor DM2- hab1c/lipids DM-neujroapathy- cont neurontin HTN- cont home med Pro: scd Dispo; f/u 10-14 HIDA pending; IV abx; improving symptoms; plan for lap shawn in 1-2 days; 10-15 Chronic cholecystitis with EF of GB at 6%. Pending cholecystecotmy. Continue antiemetics, fluids and abx. Reduce fluids; check labs 10-16 endoscopy pending MARILOU ENGLISH MD, PHD.
--- NOTE | 2020-06-18 06:19 | NUR ---
IM- progress note O/N see below ROS: nof/c/s/LUX/cp/dizziness/confusion/leg pain/vision changes/focal limb weakness v/s revd PE tired appearing anicteric ns1s2 mod bs soft; RUQ TENDERNESS; EQUIVOCAL BOYD'S SIGN no leg edema skin dry n. affect a&ox3; stoddard labs/meds revd A/P: 59yoM Acute enteritis- IV flagyl; IVF Intractable N/V- antiemetics Equivocal Boyd's sign- check HIDA scan. Cholelithiasis- contributory to symptoms; Sx consulted; possible cholecystectomy soon Transaminitis- monitor DM2- hab1c/lipids DM-neujroapathy- cont neurontin HTN- cont home med Pro: scd Dispo; f/u 06-15 HIDA pending; IV abx; improving symptoms; plan for lap shawn in 1-2 days; 10-15 Chronic cholecystitis with EF of GB at 6%. Pending cholecystecotmy. Continue antiemetics, fluids and abx. Reduce fluids; check labs 06-17 endoscopy pending 06-18 s/p lap shawn; phenergan for nausea. control BP MARILOU ENGLISH MD, PHD.
[2020-06-18] MEDS: METOCLOPRAMIDE HCL 10 MG/2ML VIAL IV SCH ×3 (06:28→18:00)
[2020-06-18] MEDS: SODIUM CHLORIDE 0.9% 1000ML 1,000 ML IV SCH ×3 (06:28→20:30)
[2020-06-18] MEDS ORDERED: PROMETHAZINE 12.5MG/ NACL 0.9% 12.5 MG/50 ML BAG IV PRN (06:45)
--- NOTE | 2020-06-18 07:10 | NUR ---
RCD PT AT BED PT IS ALERT AND ORIENTED RESTING ON BED IV PATENT NO SIGNS OF ANY BLEEDING ON THE SURGICAL SITE BED LOW AND LOCKED CALL LIGHT IN REACH
[2020-06-18] MEDS: ONDANSETRON HCL INJ 2MG/ML 2ML 2 MG/ML VIAL IV PRN ×3 (08:31→23:05)
[2020-06-18] MEDS: DOCUSATE SODIUM 100 MG CAP PO SCH ×2 (09:00→17:00)
[2020-06-18] MEDS: METOPROLOL TARTRATE 25 MG TAB PO SCH ×2 (09:00→17:00)
[2020-06-18] MEDS: LISINOPRIL 10 MG TAB PO SCH (09:00)
[2020-06-18] MEDS: PANTOPRAZOLE 40 MG 10ML VIAL IV SCH (14:15)
--- NOTE | 2020-06-18 18:43 | NUR ---
pt resting on bed bed side report given to oncoming nurse
[2020-06-18] MEDS: CEFTRIAXONE SOD 1 GM/NS 50 ML 50 ML IV SCH (20:01)
[2020-06-18] MEDS: HYDROCODONE/APAP 5MG-325MG TAB PO PRN (20:01)
[2020-06-19] VITALS: BP 158/90
[2020-06-19] MEDS: SODIUM CHLORIDE 0.9% 1000ML 1,000 ML IV SCH ×2 (00:07→06:30)
[2020-06-19] MEDS: METOCLOPRAMIDE HCL 10 MG/2ML VIAL IV SCH ×3 (00:07→12:24)
[2020-06-19] MEDS: HYDROCODONE/APAP 5MG-325MG TAB PO PRN ×2 (04:03→08:41)
[2020-06-19 08:10] VITALS: BP 158/94
[2020-06-19] MEDS: DOCUSATE SODIUM 100 MG CAP PO SCH (08:40)
[2020-06-19] MEDS: METOPROLOL TARTRATE 25 MG TAB PO SCH (08:40)
[2020-06-19] MEDS: LISINOPRIL 10 MG TAB PO SCH (08:41)
[2020-06-19 10:40] VITALS: BP 159/92
[2020-06-19 11:09] VITALS: BP 160/90
--- NOTE | 2020-06-19 13:03 | NUR ---
D/C summary Principal Dx: Acute enteritis- IV flagyl; IVF Intractable N/V- antiemetics Equivocal Boyd's sign- check HIDA scan. Cholelithiasis- contributory to symptoms; Sx consulted; possible cholecystectomy soon Transaminitis- monitor Chronic cholecystitis s/p lap shawn Constipation Secondary dx: DM2- hab1c/lipids DM-neujroapathy- cont neurontin HTN- cont home med Pro: scd Dispo; f/u - HIDA pending; IV abx; improving symptoms; plan for lap shawn in 1-2 days; 06-16 Chronic cholecystitis with EF of GB at 6%. Pending cholecystecotmy. Continue antiemetics, fluids and abx. Reduce fluids; check labs 06-17 endoscopy pending 06-18 s/p lap shawn; phenergan for nausea. control BP - control BP; labs tomorrow; d/c home stable f/u pcp 2 days and surgery as directed d/c>35mins MARILOU ENGLISH MD, PHD.
[2020-06-19] MEDS ORDERED: NIFEDIPINE CR 30 MG TAB PO SCH (13:15)
[2020-06-19] MEDS ORDERED: LABETALOL HCL 5 MG/ML 20ML VIAL IV ONE (14:15)
[2020-06-19] MEDS ORDERED: PANTOPRAZOLE SO40 MG PO (14:18)
[2020-06-19] MEDS ORDERED: LOPRESSOR25 MG PO (14:18)
[2020-06-19] MEDS ORDERED: COLACE100 MG PO ×2 (14:18)
[2020-06-19] MEDS ORDERED: SENNA LAXATIVE8.6 MG PO (14:42)
[2020-06-19 15:08] VITALS: BP 186/87
[2020-06-19] MEDS ORDERED: METOPROLOL TARTRATE 25 MG TAB PO SCH (17:00)
== END 2020-06-19 15:35 | disposition home or self-care (01) | DRG 357 ==
LOC: ER 12:14 → ERHOLD 12:45 → MED/SURG2 14:30
PROVIDERS: ADMIT Internal Medicine; ATTEND Internal Medicine
PROC: 0FT44ZZ Resection of Gallbladder, Percutaneous Endoscopic Approach (ICD-10-PCS; principal; 2020-06-17 12:51)
DX: K52.9 Noninfective gastroenteritis and colitis, unspecified (principal); K80.10 Calculus of gallbladder with chronic cholecystitis without obstruction; Z68.1 Body mass index [BMI] 19.9 or less, adult; E86.0 Dehydration; K46.9 Unspecified abdominal hernia without obstruction or gangrene; E11.43 Type 2 diabetes mellitus with diabetic autonomic (poly)neuropathy; K31.84 Gastroparesis; B18.2 Chronic viral hepatitis C; E11.42 Type 2 diabetes mellitus with diabetic polyneuropathy; G89.4 Chronic pain syndrome; I10 Essential (primary) hypertension; R63.6 Underweight; Z20.828 Contact with and (suspected) exposure to other viral communicable diseases; Z87.891 Personal history of nicotine dependence
CPT/HCPCS: 36415; 71045; 74177; 78227; 80048; 80053; 80061; 81001; 82150; 82550; 82553; 82948; 83036; 83690; 83735; 83880; 84484; 85025; 85610; 85730; 87086; 88304; 93005; 96361; A9537; C1766; J0330; J0696; J1100; J1170; J1885; J2001; J2250; J2270; J2405; J2550; J2765; J3010; J7030; Q9967; U0002

== ENCOUNTER → 2024-12-10 | Outpatient (REF) | payer OTHER ==
[~2024-12-10] MED LIST: COLACE100 MG PO; DICYCLOMINE HCL20 MG PO; GABAPENTIN100 MG PO; GLIPIZIDE5 MG PO; LEVSIN0.125 MG PO; LISINOPRIL10 MG PO; LOPRESSOR25 MG PO; LYRICA50 MG PO; PANTOPRAZOLE SO40 MG PO; PROMETHAZINE12.5 M1 PO; SENNA LAXATIVE8.6 MG PO; ULTRAM 50MG50 MG PO
== END ==
LOC: NM 11:55
PROVIDERS: ATTEND Surgery Surgery of the Hand
DX: M00.9 Pyogenic arthritis, unspecified (principal); M86.241 Subacute osteomyelitis, right hand
CPT/HCPCS: 78315; A9503